=== PATIENT | female | born 1960 | race Caucasian/White ===

== ENCOUNTER 2017-02-27 23:10 | Emergency (ER) | payer SELFPAY ==
[2017-02-27] MEDS ORDERED: Lorazepam 2 MG/ML VIAL ONE (23:42)
[2017-02-27 23:50] LABS: #Basophils 0.1 thou/uL (0.0-0.2); #Eosinphils 0.1 thou/uL (0.0-0.7); #Lymphocytes 2.1 thou/uL (1.20-3.40); #Monocytes 0.7 thou/uL (0.11-0.59); #Neutrophils 5.2 thou/uL (1.40-6.50); %Basophils 0.7 % (0.0-1.0); %Eosinophils 1.5 % (0.0-10.0); %Lymphocytes 25.7 % (21.0-51.0); %Monocytes 8.2 % (0.0-10.0); Hematocrit 47.2 % (36.0-47.0); Mean Platelet Volume 6.7 fL (7.4-10.4); Red Blood Cell (RBC) Count 5.12 mill/uL (4.20-5.40); White Blood Cell (WBC) Count 8.2 thou/uL (4.8-10.8)
[2017-02-28 00:04] LABS: Bilirubin Small (Negative); Blood, Urine Small (Negative); Glucose, Urine (Dipstick) Negative (Negative); Ketone, Urine 15 mg/dL (Negative); Nitrite Negative (Negative); Protein, Urine (Dipstick) Negative (Neg-Trace)
[2017-02-28 00:11] LABS: ALT (SGPT) 36 U/L (8-55); AST (SGOT) 53 U/L (5-34); Alkaline Phosphatase 83 U/L (40-150); Anion Gap 17 mmol/L (10-20); BUN (Urea Nitrogen) 15 mg/dL (9.8-20.1); CK (CPK) 205 U/L (29-168); Calc. Creatinine Clearance 0 mL/min (70-130); Calcium 9.7 mg/dL (7.8-10.44); Carbon Dioxide 24 mmol/L (22-29); Chloride 103 mmol/L (98-107); Estimated GFR-MDRD 65; Globulin 3.3 g/dL (2.4-3.5); Protein, Total 7.4 g/dL (6.0-8.3)
[2017-02-28 00:12] LABS: Acetaminophen Less than 6.0 mcg/mL (10.0-30.0); Salicylate Less than 8.0 mg/dL (15.0-30.0)
[2017-02-28 00:20] LABS: Bacteria/HPF Rare-Few HPF (None Seen); Hyaline Casts/LPF 0-3 HYALINE CAST LPF (0-3 Hyaline); Squamous Epithelial 0-3 HPF (0-3); WBC/HPF 21-50 HPF (0-3)
[2017-02-28 00:24] LABS: RBC/HPF 0-3 HPF (0-3)
[2017-02-28 00:32] LABS: Amphetamine Not Detected (NotDetected); Methadone Not Detected (NotDetected); Methamphetamine Not Detected (NotDetected)
[2017-02-28] MEDS ORDERED: SODIUM CHLORIDE 0.9% IVPB SCH (01:15)
[2017-02-28] MEDS ORDERED: CEFTRIAXONE ROCEPHIN IVPB SCH (01:15)
[2017-02-28] MEDS ORDERED: cefTRIAXone\\ROCEPHIN 2 GM VIAL ONE (06:17)
[2017-02-28] MEDS ORDERED: Ibuprofen 200 MG TAB ONE (08:49)
[2017-02-28] MEDS ORDERED: hydrOXYzine Pamoate 25 mg Capsule PO SCH (09:00)
[2017-02-28] MEDS ORDERED: traZODone HCl 150 MG TAB PO SCH (21:00)
[2017-02-28] MEDS ORDERED: traZODone HCl 50 MG TAB PO SCH (21:00)
[2017-02-28] MEDS ORDERED: Nicotine 14 MG PATCH TOP SCH (23:30)
[2017-03-01] MEDS ORDERED: Lorazepam 1 MG TAB ONE ×2 (08:29→19:01)
[2017-03-01] MEDS ORDERED: Methotrexate Sodium 2.5 MG TAB PO SCH (09:00)
[2017-03-01] MEDS ORDERED: Nitrofurantoin Monohyd/M-Cryst 100 MG CAP PO SCH (21:00)
[2017-03-01] MEDS ORDERED: traZODone HCl 50 MG TAB ONE (21:41)
[2017-03-02] MEDS ORDERED: Lorazepam 1 MG TAB ONE ×3 (06:53→20:56)
--- NOTE | 2017-03-07 11:45 | EKG ---
Test Reason : Blood Pressure : / mmHG Vent. Rate : 086 BPM Atrial Rate : 086 BPM P-R Int : 146 ms QRS Dur : 078 ms QT Int : 378 ms P-R-T Axes : 007 005 026 degrees QTc Int : 452 ms Normal sinus rhythm Normal ECG Confirmed by ARELY ROMERO, MARILYNN ([id number]), web editor MARVIN BURRELL ([id number]) on 03/07/2017 11:44:36 AM Referred By: Confirmed By:MARILYNN MCGEE MD
== END 2017-03-02 22:14 ==
LOC: ERS 23:10
DX: R45.851 Suicidal ideations (principal); F41.9 Anxiety disorder, unspecified; F32.9 Major depressive disorder, single episode, unspecified; F17.210 Nicotine dependence, cigarettes, uncomplicated; Z86.19 Personal history of other infectious and parasitic diseases; Z79.899 Other long term (current) drug therapy
CPT/HCPCS: 80053; 80306; 80307; 81003; 81015; 81025; 82550; 84443; 85025; 87086; 93005; 94760; 96361; 96365; 96366; 96375; J0696; J2060; J7050; J8610; Q0177

== ENCOUNTER 2017-10-16 17:21 | Emergency (ER) | payer SELFPAY ==
[2017-10-16] MEDS ORDERED: Ketorolac Tromethamine 30 MG/ML VIAL ONE (19:50)
== END 2017-10-16 20:00 | disposition home or self-care (01) ==
LOC: ERS 17:21
DX: M54.42 Lumbago with sciatica, left side (principal); F41.9 Anxiety disorder, unspecified; F32.9 Major depressive disorder, single episode, unspecified; F17.210 Nicotine dependence, cigarettes, uncomplicated; Z71.6 Tobacco abuse counseling; Z79.899 Other long term (current) drug therapy
CPT/HCPCS: 96372; 99406; J1885

== ENCOUNTER 2018-08-16 09:45 | Emergency (ER) | payer SELFPAY ==
[2018-08-16] MEDS ORDERED: Amoxicillin/Potassium Clav 875 MG TAB ONE (11:22)
== END 2018-08-16 11:28 | disposition home or self-care (01) ==
LOC: ERS 09:45
DX: K03.81 Cracked tooth (principal); F32.9 Major depressive disorder, single episode, unspecified; F17.210 Nicotine dependence, cigarettes, uncomplicated; F41.9 Anxiety disorder, unspecified; Z79.899 Other long term (current) drug therapy; Z71.6 Tobacco abuse counseling
CPT/HCPCS: 99406

== ENCOUNTER 2018-09-10 14:36 | Observation (INO) | payer SELFPAY ==
--- NOTE | 2018-09-10 16:06 | CT ---
Lumbar spine CT scan without IV contrast: HISTORY: Pain in back following a pop and associated injury COMPARISON: None FINDINGS: There is a less than 50% vertical height loss compression fracture of L1. This appears to be acute. N o evidence for posterior element fracture. Mild discogenic changes at L1-L2, L2-L3, L3-L4 with mild lateral recess stenosis. At L4-L5 there is considerable disc osteophytosis with postoperative changes on the right side and mo derate canal, lateral recess, and severe bilateral foraminal stenosis. L5-S1 moderate central canal and lateral recess stenosis and severe bilateral foraminal stenosis from extensive disc osteophytosis. Impression: Acute appearing less than 50% vertical height loss compression fracture of L1. Generalized multilevel variable severity canal, recesses, foraminal stenosis.
[2018-09-10] MEDS ORDERED: Morphine 4 MG/ML VIAL ONE ×2 (17:09→19:38)
[2018-09-10] MEDS ORDERED: Ketorolac Tromethamine 30 MG/ML VIAL ONE (17:10)
[2018-09-10] MEDS ORDERED: Ondansetron ODT 4 MG TAB ONE (17:10)
[2018-09-10] MEDS ORDERED: Dexamethasone 4 mg/ml Vial ONE (17:10)
[2018-09-10] MEDS ORDERED: Morphine 4 MG/ML VIAL SLOW IVP PRN ×2 (21:20→21:21)
[2018-09-10] MEDS ORDERED: Ondansetron ODT 4 MG TAB SL PRN (21:22)
[2018-09-10] MEDS ORDERED: Ondansetron PF 4 MG/2 ML Vial IVP PRN (21:22)
[2018-09-10] MEDS: Sodium Chloride 0.9% 1,000 ML IV SCH (21:42)
[2018-09-10 21:47] VITALS: BMI 29.2
[2018-09-10] MEDS ORDERED: traMADol HCl 50 MG TAB PO PRN (22:46)
[2018-09-10] MEDS ORDERED: Acetaminophen 325 MG TAB PO PRN (22:47)
[2018-09-10] MEDS ORDERED: Senokot S 8.6-50 MG TAB PO PRN (22:47)
--- NOTE | 2018-09-11 02:59 | HP ---
PRIMARY CARE PHYSICIAN: [facility]. CHIEF COMPLAINT: Back pain. HISTORY OF PRESENT ILLNESS: Ms. Ivory is a 57-year-old female, who came to the emergency room today for evaluation of low back pain. The patient notes that her pain began last night during sexual intercourse, heard a popping sound and then the pain began. She has been able to ambulate since the event, although it has been causing her some increased pain. Denies footdrop, saddle anesthesia, lower extremity weakness, tingling, numbness, or bowel or bladder incontinence. The patient initially suspected that the pain was due to a muscle strain and spent most of the day in bed, and when the pain did not improve, she sought further management at the [facility] ER. The patient had a CT scan done of the lumbar spine, which showed a compression fracture/subluxation of L1, acute appearing less than 50% vertical height loss compression fracture of L1, generalized multilevel variable severity canal recesses and foraminal stenosis. Neurosurgery was contacted. They reviewed the CT scan, suggested a TLSO brace and follow up in outpatient clinic in the next several weeks. The patient was going to be discharged home, but after 6 mg of morphine, some Decadron, Toradol, and Zofran ODT. The patient's pain was intractable. Therefore, she was admitted to the observation unit for further management and pain medications. PAST MEDICAL HISTORY: Includes hep C, iritis, psoriasis. PAST SURGICAL HISTORY: Back surgery x2, right arm surgery, cataract surgery x2, section x2, tonsillectomy. PSYCH HISTORY: Anxiety, depression, has been admitted for depression, suicidal attempts in the past. SOCIAL HISTORY: Denies alcohol use or drug use. Currently, does use tobacco, smokes cigarettes, half a pack per day. REVIEW OF SYSTEMS: The patient does report lower back pain. Denies any chest pain, shortness of breath, cough, abdominal pain, bowel or bladder incontinence, or lower leg weakness. All other systems are reviewed and are negative unless mentioned in the HPI. PHYSICAL EXAMINATION: VITAL SIGNS: Blood pressure 152/82, pulse is 68, respirations 18, pulse ox is 98% on room air, temp is 97.7. CONSTITUTIONAL: The patient appears in mild pain distress. She is nontoxic appearing. HEENT: Head is atraumatic and normocephalic. Eyes, eyelids are normal to inspection. Sclerae are normal. ENT, mouth mucous membranes are moist. Mouth exam is normal. NECK: Normal range of motion. No C-spine tenderness. No ecchymosis. RESPIRATORY/CHEST: Breath sounds are clear. No findings of respiratory distress. CARDIOVASCULAR: Heart rate, regular rate and rhythm. ABDOMEN: Soft and nontender. Bowel sounds are heard. BACK: Lower midline tenderness with greater severity over L1. No step-offs. Upper extremity inspection normal. Motor strength is normal. Radial pulses equal bilaterally. Lower extremity inspection is normal. Sensation is intact. Pedal pulses are normal. No edema is noted. NEURO: The patient is oriented to person, place, and time. Speech is normal. SKIN: Warm and dry. Normal in color. ASSESSMENT AND PLAN: 1. Intractable pain related to an L1 compression fracture. The patient has been placed in a TLSO brace which she should wear with the exception of taking a shower and follow up with Neurosurgery as requested for Dr. Abdullahi, in the next 2 to 3 weeks. We will continue IV fluids, pain medication. We will ask PT to evaluate in the morning, and if pain is tolerable, we will most likely discharge with p.o. pain medication. 2. Depression. We will continue home medication. 3. Deep vein thrombosis and gastrointestinal prophylaxis will be started. 4. Hospital course will be dependent on clinical findings. Job ID: [id number]
[2018-09-11 04:16] LABS: Bilirubin Negative (Negative); Blood, Urine Trace (Negative); Clarity CLEAR (Clear); Glucose, Urine (Dipstick) 100 mg/dL (Negative); Leukocyte Moderate (Negative); Nitrite Negative (Negative); Protein, Urine (Dipstick) Trace mg/dL (Neg-Trace); Specific Gravity, Urine 1.025 (1.002-1.036); Urobilinogen 0.2 mg/dL (0.2-1.0); pH, Urine 5.5 (5.0-9.0)
[2018-09-11 04:19] LABS: Bacteria/HPF Rare-Few HPF (None Seen); Hyaline Casts/LPF 7-10 HYALINE CAST LPF (0-3 Hyaline); Pathc Cast-AUWi Flag 1.22 (0-2.49); RBC/HPF 0-3 HPF (0-3)
[2018-09-11 04:29] LABS: Amphetamine Not Detected (NotDetected); Benzodiazepine Screen Not Detected (NotDetected); Cocaine Metabolite Screen Detected (NotDetected); Medtox Reader # READER 4; Methamphetamine Not Detected (NotDetected); Opiate Screen Detected (NotDetected); Phencyclidine (PCP) Not Detected (NotDetected); THC/Cannabinoid Screen Not Detected (NotDetected)
[2018-09-11 04:30] LABS: Barbiturates Screen Not Detected (NotDetected); Medtox Control Line Valid? VALID (VALID); Methadone Not Detected (NotDetected); Oxycodone Screen Not Detected (NotDetected); Tricyclic Screen Detected (NotDetected)
[2018-09-11 04:42] LABS: Renal Epithelial 0-3 HPF (0-3); Transitional Epithelial NONE SEEN HPF (0-3)
[2018-09-11] MEDS: Sodium Chloride 0.9% 1,000 ML IV SCH (05:21)
[2018-09-11 06:44] LABS: #Lymphocytes 0.5 thou/uL (1.20-3.40); #Monocytes 0.3 thou/uL (0.11-0.59); #Neutrophils 4.7 thou/uL (1.40-6.50); %Basophils 0.8 % (0.0-1.0); %Eosinophils 0.2 % (0.0-10.0); %Lymphocytes 8.4 % (21.0-51.0); %Monocytes 4.7 % (0.0-10.0); Hemoglobin 13.6 g/dL (12.0-16.0); Mean Corpuscular HGB CONC 34.4 g/dL (32.0-36.0); Mean Corpuscular Hemoglobin 29.2 pg (27.0-31.0); Mean Platelet Volume 8.4 fL (7.4-10.4); Platelet Count 144 thou/uL (130-400); RBC Distribution Width 13.2 % (11.5-14.5); Red Blood Cell (RBC) Count 4.64 mill/uL (4.20-5.40); White Blood Cell (WBC) Count 5.4 thou/uL (4.8-10.8)
[2018-09-11 07:01] LABS: Anion Gap 11 mmol/L (10-20); BUN (Urea Nitrogen) 16 mg/dL (9.8-20.1); Calc. Creatinine Clearance 99 mL/min (70-130); Carbon Dioxide 23 mmol/L (22-29); Chloride 108 mmol/L (98-107); Estimated GFR-MDRD 62; Glucose 145 mg/dL (70-105); Potassium 4.1 mmol/L (3.5-5.1); Sodium 138 mmol/L (136-145)
[2018-09-11 07:52] VITALS: BP 130/71; TEMP 97.9
[2018-09-11] MEDS ORDERED: DULoxetine 30 MG CAP PO SCH (09:00)
[2018-09-11] MEDS ORDERED: Famotidine 20 MG TAB PO SCH (09:00)
[2018-09-11] MEDS ORDERED: Enoxaparin Sodium 40 MG/0.4 ML SYRINGE SC SCH (09:00)
[2018-09-11] MEDS ORDERED: DULoxetine 60 MG CAP PO SCH (09:00)
[2018-09-11] MEDS ORDERED: hydrOXYzine 25 MG TAB PO SCH (09:00)
[2018-09-11] MEDS ORDERED: Acetaminophen/Codeine 30-300mg Tablet PO PRN (10:26)
--- NOTE | 2018-09-12 03:12 | DIS ---
DATE OF ADMISSION: 09/10/2018 DATE OF DISCHARGE: 09/11/2018 ALLERGIES: NO KNOWN DRUG ALLERGIES. CHIEF COMPLAINT: Back pain. FINAL DIAGNOSES: 1. Back pain secondary to L1 compression fracture, status post TLSO brace fitting. 2. Anxiety and depression. 3. Polysubstance abuse, tox screen positive for cocaine. LABORATORY RESULTS: White blood cell count 5.4, hemoglobin 13.6, hematocrit 39.5, platelets 144. Sodium 138, potassium 4.1, chloride 108, carbon dioxide 23, anion gap 11, BUN 16, creatinine 0.93, glucose 145. Urinalysis positive for opiates, tricyclics, and cocaine. IMAGING RESULTS: Lumbar spine CT scan without IV contrast shows acute appearing less than 50% vertical height loss, compression fracture of L1, generalized multilevel variable severity canal recesses and foraminal stenosis. CONSULTATIONS: Dr. Abdullahi. VITAL SIGNS: Blood pressure 121/76, pulse 70, O2 saturation 97% on room air. The patient is afebrile. HOSPITAL COURSE: The patient is a 57-year-old female who presented to the ED yesterday with complaints of back pain. She stated that her pain began the night before during sexual intercourse, when she heard a popping sound, and then began to have back pain. She was able to ambulate after the event, although her pain began to increase. She denied footdrop, saddle anesthesia, lower extremity weakness, tingling, numbness, or bowel or bladder incontinence. The patient did try to stay off her feet and rest, however, her pain did not improve and so she presented to the ED for further workup and treatment. CT scan of the lumbar spine as above showed acute compression fracture of L1. She was fitted with a TLSO brace in the ER and was cleared for discharge to follow up with Dr. Abdullahi in 2-3 weeks, however, she continued to have intractable pain, and was admitted for pain control overnight. The patient did eventually improve with morphine, Toradol, and Zofran. This morning, her pain is much improved. Physical therapy released her to walking program, and she did walk the halls without any difficulty. She has no complaints this morning of chest pain, shortness of breath, nausea, or vomiting. She is tolerating a diet without any issues. PHYSICAL EXAMINATION: GENERAL: The patient is awake and alert, she is in no respiratory distress. HEENT: Atraumatic, normocephalic. Eye movements are intact. NECK: Supple. No lymphadenopathy. No JVD. RESPIRATORY: Regular respiratory rate and pattern. Clear to auscultation bilaterally. CV: S1 and S2. Regular rate and rhythm. No appreciable murmurs, rubs, or gallops. GI: Soft, nontender, normal bowel sounds. PERIPHERAL VASCULAR: No lower extremity edema. EXTREMITIES: Warm and well perfused. MUSCULOSKELETAL: No joint effusion or swelling. NEUROLOGIC: Cranial nerves 2 through 12 intact. Nonfocal. SKIN: Warm and dry. No rashes. PSYCHIATRIC: The patient is alert and oriented x3, however, does appear somewhat nervous and agitated. CONDITION AT DISCHARGE: Stable. DISCHARGE MEDICATIONS: The patient will continue her home medication regimen which includes duloxetine 60 mg tab, one tablet p.o. daily, hydroxyzine 100 mg tablet p.o. b.i.d., Seroquel 100 mg at bedtime. She will also be sent home on acetaminophen with codeine 1 tab p.o. q.4, #10. DISCHARGE DISPOSITION: Home. PLAN: The patient has been counseled heavily on drug cessation. She will wear her brace at all times except when she is in the shower. She has been counseled on this. She will follow up with Dr. Abdullahi's office in 2-3 weeks. Job ID: [id number]
== END 2018-09-11 16:50 | disposition home or self-care (01) ==
LOC: ERS 14:36 → T4-A 18:43
PROVIDERS: ADMIT Internal Medicine; ATTEND Internal Medicine
DX: S32.010A Wedge compression fracture of first lumbar vertebra, initial encounter for closed fracture (principal); L40.9 Psoriasis, unspecified; F41.9 Anxiety disorder, unspecified; F32.9 Major depressive disorder, single episode, unspecified; F17.210 Nicotine dependence, cigarettes, uncomplicated; F14.10 Cocaine abuse, uncomplicated; Z91.5 Personal history of self-harm; Z79.899 Other long term (current) drug therapy; X50.9XXA Other and unspecified overexertion or strenuous movements or postures, initial encounter
CPT/HCPCS: 36415; 72131; 80048; 80306; 81001; 85025; 96361; 96372; 96374; 96375; 96376; G0378; J1100; J1650; J1885; J2270; Q0162